=== PATIENT | male | born 1950 | race Hispanic/Latino ===

== ENCOUNTER → 2018-11-23 | Outpatient (CLI) | payer OTHER | END | disposition home or self-care (01) | LOC: RAH 09:53 | PROVIDERS: ATTEND Internal Medicine Gastroenterology | DX: R16.1 Splenomegaly, not elsewhere classified (principal); N28.1 Cyst of kidney, acquired | CPT/HCPCS: 76700; 93975 ==

== ENCOUNTER → 2019-01-06 | Outpatient (CLI) | payer OTHER ==
[~2019-01-06] MED LIST: IOHEXOL-350 50ML VIAL IV ONE
== END | disposition home or self-care (01) ==
LOC: OIH 07:51
PROVIDERS: ATTEND Internal Medicine
DX: N28.1 Cyst of kidney, acquired (principal); K57.90 Diverticulosis of intestine, part unspecified, without perforation or abscess without bleeding; I70.90 Unspecified atherosclerosis; M47.815 Spondylosis without myelopathy or radiculopathy, thoracolumbar region; R16.1 Splenomegaly, not elsewhere classified
CPT/HCPCS: 74170; Q9967

== ENCOUNTER → 2020-06-21 | Outpatient (CLI) | payer OTHER | END | disposition home or self-care (01) | LOC: RAH 08:41 | PROVIDERS: ATTEND Internal Medicine Gastroenterology | DX: K74.60 Unspecified cirrhosis of liver (principal); R16.1 Splenomegaly, not elsewhere classified; I70.0 Atherosclerosis of aorta; N28.1 Cyst of kidney, acquired; Z90.49 Acquired absence of other specified parts of digestive tract | CPT/HCPCS: 76700; 93975 ==

== ENCOUNTER → 2022-02-06 | Outpatient (CLI) | payer OTHER | END | disposition home or self-care (01) | LOC: RAH 07:35 | PROVIDERS: ATTEND Internal Medicine Gastroenterology | DX: N28.1 Cyst of kidney, acquired (principal); I70.90 Unspecified atherosclerosis; K74.60 Unspecified cirrhosis of liver | CPT/HCPCS: 76700; 93975 ==

== ENCOUNTER → 2023-07-30 | Outpatient (CLI) | payer OTHER ==
[2023-07-30 16:35] LABS: CHOLESTEROL 133 mg/dL (<200); HDL CHOLESTEROL 60 mg/dL (29-71); LDL DIRECT 65 mg/dL (0-99); TRIGLYCERIDES 74 mg/dL (30-200)
== END | disposition home or self-care (01) ==
LOC: LAB 07-29 09:51
PROVIDERS: ATTEND Student in an Organized Health Care Education/Training Program
DX: E78.5 Hyperlipidemia, unspecified (principal)
CPT/HCPCS: 36415; 80061

== ENCOUNTER → 2023-08-05 | Outpatient (CLI) | payer OTHER | END | disposition home or self-care (01) | LOC: SHCH 09:26 | PROVIDERS: ATTEND Student in an Organized Health Care Education/Training Program | DX: I35.2 Nonrheumatic aortic (valve) stenosis with insufficiency (principal); I51.7 Cardiomegaly | CPT/HCPCS: 93306 ==

== ENCOUNTER → 2024-07-30 | Outpatient (CLI) | payer OTHER | END | disposition home or self-care (01) | LOC: SHCH 07:43 | PROVIDERS: ATTEND Student in an Organized Health Care Education/Training Program | DX: I35.0 Nonrheumatic aortic (valve) stenosis (principal) | CPT/HCPCS: 93306 ==

== ENCOUNTER → 2024-08-16 | Outpatient (CLI) | payer OTHER ==
--- NOTE | 2024-08-16 10:37 | HMCIMG ---
US RENAL SONOGRAM HISTORY: Painless hematuria COMPARISON: None TECHNIQUE: Renal and bladder ultrasound study was performed. FINDINGS: The right kidney measures 10 x 4.5 x 4.7 cm. The left kidney measures 11.3 x 5.2 x 3.9 cm. No evidence of hydronephrosis is seen of either kidney. There is left lower pole renal cyst measuring 7.7 x 5.5 x 7.4 cm. Both kidneys are seen. Bladder is moderately distended. Prevoid bladder volume is 70 cc. Post void bladder volume is 15 cc. Prostate measured 41 cc. IMPRESSION: 1. No hydronephrosis is seen. Left lower pole renal cyst measuring 7.7 cm.
== END | disposition home or self-care (01) ==
LOC: RAH 09:10
PROVIDERS: ATTEND Internal Medicine
DX: N28.1 Cyst of kidney, acquired (principal); N32.89 Other specified disorders of bladder; R31.9 Hematuria, unspecified
CPT/HCPCS: 76770

== ENCOUNTER → 2024-11-09 | Outpatient (CLI) | payer OTHER ==
--- NOTE | 2024-11-14 19:24 | HMCSR ---
APPROVED REPORT Laterality: Bilateral Indications AAA Doppler Spectral Velocity Analysis PSV / EDVPSV / EDV ECA (R) 104 / cm/sECA (L) 85 / cm/s dICA (R) 103 / 21 cm/sdICA (L) 72 / 15 cm/s Eddie (R) 75 / 16 cm/smICA (L) 94 / 19 cm/s pICA (R) 76 / 26 cm/spICA (L) 61 / 13 cm/s dCCA (R) 66 / 13 cm/sdCCA (L) 50 / 8 cm/s mCCA (R) 80 / 14 cm/smCCA (L) 74 / 13 cm/s pCCA (R) 68 / 11 cm/spCCA (L) 82 / 10 cm/s Vert (R) 44 / cm/sVert (L) 44 / cm/s Subl. (R) 133 / cm/sSubl. (L) 82 / cm/s ICA/CCA 1.29ICA/CCA 1.15 Technologist Impression Minimal to Mild plaque noted in the bilateral carotids, without hemodynamic significance. Bilateral vertebral arteries appear antegrade. Conclusion Minimal to Mild plaque noted in the bilateral carotids, without hemodynamic significance. Bilateral vertebral arteries appear antegrade. Conclusion Minimal to Mild plaque noted in the bilateral carotids, without hemodynamic significance. Bilateral vertebral arteries appear antegrade.
--- NOTE | 2024-11-14 19:25 | HMCSR ---
APPROVED REPORT Indications AAA Duplex Results A/PTransverseLongitudinalVelocityWaveform Proximal Aorta 1.94cm2.63cm2.02cm78.10 cm/sec Mid Aorta 1.60cm2.17cm1.75cm88.70 cm/sec Distal Aorta 1.40cm1.84cm1.48cm62.70 cm/sec Rt. Common Iliac Artery1.22cm0.80cm0.90cm58.00 cm/sec Lt. Common Iliac Artery 1.06cm1.09cm1.10dx711.40 cm/sec Techologist Impression The abdominal aorta and the right and left common iliac arteries are patent and normal in size withou t evidence of aneurysm; however, there is evidence of Mild atherosclerotic disease. Conclusion The abdominal aorta and the right and left common iliac arteries are patent and normal in size withou t evidence of aneurysm; however, there is evidence of Mild atherosclerotic disease. Conclusion The abdominal aorta and the right and left common iliac arteries are patent and normal in size withou t evidence of aneurysm; however, there is evidence of Mild atherosclerotic disease.
== END | disposition home or self-care (01) ==
LOC: SHCH 08:24
PROVIDERS: ATTEND Student in an Organized Health Care Education/Training Program
DX: I70.0 Atherosclerosis of aorta (principal); I71.40 Abdominal aortic aneurysm, without rupture, unspecified; R09.89 Other specified symptoms and signs involving the circulatory and respiratory systems
CPT/HCPCS: 93880; 93978

== ENCOUNTER → 2025-03-16 | Outpatient (CLI) | payer OTHER ==
[~2025-03-16] MED LIST changes: +IOHEXOL 350 MG/ML 100ML INFUS..BTL IV ONE; -IOHEXOL-350 50ML VIAL IV ONE
--- NOTE | 2025-03-16 15:33 | HMCIMG ---
CT ABDOMEN/PELVIS W/WO CONTRAS REASON: Other specified symptoms and signs involving the digestive system and abdom COMPARISON: 06/21/2024 TECHNIQUE: Images are obtained from lung bases through the symphysis pubis before and after IV contrast, 100 cc Omnipaque [id number]. Oral contrast was demonstrated as well. FINDINGS: Lung bases are clear. There is nodular hepatic surface contour. There is moderate splenomegaly. There are some mild varices present as well. Findings are consistent with cirrhosis and abdominal progressed since prior exam. There are no focal liver lesions. There are some 0.7 cm left renal cyst unchanged compared to previous exam. There are normal-appearing kidneys.. Spleen and pancreas appear unremarkable. The gallbladder appears normal as well. There is mild sigmoid diverticulosis without evidence of diverticulitis. Bowel loops appear otherwise unremarkable. This includes normal appearance of the appendix There is no evidence of free fluid or intraperitoneal air. There are no focal fluid collections. Aorta and retroperitoneum appear normal as do pelvic soft tissue structures. There is a seroma in the anterior abdominal wall. There is a periumbilical ventral hernia. Seroma is surrounding this. The seroma remains a small, unchanged in size.. Osseous structures appear unremarkable. IMPRESSION: 1. Small periumbilical ventral hernia with a small surrounding seroma, unchanged. 2. Nodular liver and splenomegaly consistent with cirrhosis. 3. Mildly complex left renal cyst which is stable in size compared to previous exam. 4. No acute finding in the abdomen or pelvis. CT was performed with one or more following dose reduction techniques: automated exposure control, adjustment of the mA and kv according to patient's size, or use of a iterative reconstruction technique.
== END | disposition home or self-care (01) ==
LOC: RAH 08:53
PROVIDERS: ATTEND Internal Medicine
DX: K43.9 Ventral hernia without obstruction or gangrene (principal); K42.9 Umbilical hernia without obstruction or gangrene; N28.1 Cyst of kidney, acquired; R16.1 Splenomegaly, not elsewhere classified; R19.8 Other specified symptoms and signs involving the digestive system and abdomen
CPT/HCPCS: 74178; Q9967